=== PATIENT | female | born 1985 | race Asian ===

== ENCOUNTER 2020-07-15 04:15 | Inpatient (IN) | payer BC ==
[2020-07-15 04:48] VITALS: BMI 32.4
[2020-07-15] MEDS ORDERED: Butorphanol Tartrate 1 MG/ML VIAL SLOW IVP PRN (06:54)
[2020-07-15] MEDS ORDERED: Methylergonovine 0.2 MG/ML VIAL IM PRN (06:54)
[2020-07-15] MEDS ORDERED: HYDROcodone/Acetaminophen 5/325 mg Tablet PO PRN ×3 (06:54→14:39)
[2020-07-15] MEDS ORDERED: Misoprostol 200 MCG TAB PR PRN (06:54)
[2020-07-15] MEDS ORDERED: Ondansetron PF 4 MG/2 ML Vial IVP PRN ×3 (06:54→14:39)
[2020-07-15] MEDS ORDERED: hydrALAZINE 20 MG/ML VIAL SLOW IVP PRN ×2 (06:54→14:39)
[2020-07-15] MEDS ORDERED: Lidocaine 1% (PF) 30 ML VIAL SC PRN (06:54)
[2020-07-15] MEDS ORDERED: Ibuprofen 800 MG TAB PO PRN (06:54)
[2020-07-15] MEDS: Lactated Ringer's 1,000 ML IV SCH ×2 (07:30→10:30)
[2020-07-15 08:13] LABS: Hemoglobin 11.8 g/dL (12.0-16.0); Mean Corpuscular HGB CONC 33.8 g/dL (32.0-36.0); Mean Corpuscular Hemoglobin 21.7 pg (27.0-31.0); Mean Corpuscular Volume 64.3 fL (78.0-98.0); Mean Platelet Volume 10.2 fL (7.4-10.4); Platelet Count 205 thou/uL (130-400); RBC Distribution Width 14.1 % (11.5-14.5); Red Blood Cell (RBC) Count 5.46 mill/uL (4.20-5.40); White Blood Cell (WBC) Count 9.5 thou/uL (4.8-10.8)
[2020-07-15 08:55] LABS: HBSAg Index 0.14 S/CO (0-0.99); Hep B Surf Ag Non-Reactive S/CO (NonReactive); Syphilis Antibody Nonreactive (Nonreactive); Syphilis Antibody Index 0.02 S/CO (<1.00 Non-Reactive)
[2020-07-15] MEDS ORDERED: Fentanyl 4 mcg/Bup 0.1% Cadd 100 ML ONE (10:01)
[2020-07-15] MEDS ORDERED: ePHEDrine 50 MG/ML VIAL SLOW IVP PRN (10:32)
[2020-07-15] MEDS ORDERED: Naloxone HCl 0.4 mg/ml Vial IVP PRN ×2 (10:32)
[2020-07-15] MEDS ORDERED: Acetaminophen 325 MG TAB PO PRN ×2 (10:32→14:41)
[2020-07-15] MEDS ORDERED: Lactated Ringer's 500 ML IV PRN (10:32)
[2020-07-15] MEDS ORDERED: Promethazine HCl 25 MG/ML VIAL IM PRN (10:32)
[2020-07-15] MEDS ORDERED: diphenhydrAMINE 50 MG/ML VIAL IVP PRN (10:32)
[2020-07-15] MEDS ORDERED: Fentanyl 4 mcg/Bupivacaine 0.1% Cassette 100 ML EPIDURAL SCH (10:45)
[2020-07-15] MEDS ORDERED: Communication Order-Pharmacy FS SCH (10:45)
[2020-07-15] MEDS: NS w/ Oxytocin 30 units 500 ML IV PRN ×2 (11:05→15:15)
[2020-07-15] MEDS ORDERED: Bupivacaine HCl 0.25%/Epi 0.0005/PF 10 ML VIAL FS ONE (11:35)
[2020-07-15] MEDS ORDERED: Bupivacaine HCl 0.5%/Epinephrine 1:200,000/PF 30 ml Vial ONE (11:35)
[2020-07-15 13:05] LABS: SARS-CoV-2 MS2 Positive; SARS-CoV-2 N Gene Negative; SARS-CoV-2 S Gene Negative; SARS-CoV-2 by NAA Not Detected (NotDetected); SARS-CoV-2 orf1ab Negative
[2020-07-15] MEDS ORDERED: Milk Of Magnesia 30 ML UDCUP PO PRN (14:39)
[2020-07-15] MEDS ORDERED: diphenhydrAMINE 25 MG CAP PO PRN (14:39)
[2020-07-15] MEDS ORDERED: Preparation H Ointment 28 GM TUBE PR PRN (14:39)
[2020-07-15] MEDS ORDERED: Zolpidem Tartrate 5 MG TAB PO PRN (14:39)
[2020-07-15] MEDS ORDERED: Adacel (T-DAP) 0.5 ML SYRINGE IM ONE (14:39)
[2020-07-15] MEDS ORDERED: Benzocaine-Menthol 82.5 ML CAN TOP PRN (14:39)
[2020-07-15] MEDS ORDERED: Lanolin Ointment 7 GM TUBE TOP PRN (14:39)
[2020-07-15] MEDS ORDERED: Bisacodyl 10 MG SUPP PR PRN (14:39)
[2020-07-15] MEDS ORDERED: Misoprostol 200 MCG TAB VAG PRN (14:39)
[2020-07-15] MEDS ORDERED: NS / Oxytocin 40 units/1000ml 1,000 ML IV SCH (14:45)
[2020-07-15] MEDS: Ferrous Sulfate 325 MG TAB PO SCH (18:17)
[2020-07-15] MEDS: Ibuprofen 800 MG TAB PO SCH (18:50)
[2020-07-15] MEDS: Docusate Calcium (SURFAK) 240 MG CAP PO SCH (21:01)
[2020-07-16] MEDS: Ibuprofen 800 MG TAB PO SCH ×3 (05:20→21:45)
[2020-07-16] MEDS: Ferrous Sulfate 325 MG TAB PO SCH ×2 (08:30→16:25)
[2020-07-16] MEDS: Prenatal Vitamin 1 TAB PO SCH (08:42)
[2020-07-16] MEDS: Docusate Calcium (SURFAK) 240 MG CAP PO SCH ×2 (08:42→21:45)
[2020-07-16 09:01] LABS: Hemoglobin 10.3 g/dL (12.0-16.0); Mean Corpuscular HGB CONC 32.2 g/dL (32.0-36.0); Mean Corpuscular Hemoglobin 20.7 pg (27.0-31.0); Mean Corpuscular Volume 64.4 fL (78.0-98.0); Mean Platelet Volume 12.3 fL (7.4-10.4); Platelet Count 176 thou/uL (130-400); Red Blood Cell (RBC) Count 4.95 mill/uL (4.20-5.40)
[2020-07-17] MEDS: Ibuprofen 800 MG TAB PO SCH ×2 (05:22→13:28)
[2020-07-17] MEDS: Ferrous Sulfate 325 MG TAB PO SCH (08:32)
[2020-07-17] MEDS: Docusate Calcium (SURFAK) 240 MG CAP PO SCH (08:53)
[2020-07-17] MEDS: Prenatal Vitamin 1 TAB PO SCH (08:53)
[2020-07-17 09:01] VITALS: BP 113/78; TEMP 98.3
== END 2020-07-17 13:50 | disposition home or self-care (01) | DRG 807 ==
LOC: L&D/OP 04:15 → L&D 06:54 → 3SW 17:21
PROVIDERS: ADMIT Obstetrics & Gynecology; ATTEND Obstetrics & Gynecology
PROC: 10E0XZZ Delivery of Products of Conception, External Approach (ICD-10-PCS; principal; 2020-07-15)
PROC: 0KQM0ZZ Repair Perineum Muscle, Open Approach (ICD-10-PCS; 2020-07-15)
PROC: 10907ZC Drainage of Amniotic Fluid, Therapeutic from Products of Conception, Via Natural or Artificial Opening (ICD-10-PCS; 2020-07-15)
DX: O70.1 Second degree perineal laceration during delivery (principal); Z37.0 Single live birth; Z3A.39 39 weeks gestation of pregnancy; Z20.822 Contact with and (suspected) exposure to COVID-19
CPT/HCPCS: 36415; 51702; 85027; 86780; 86850; 86900; 86901; 87340; 87635; 99285; J2590; U0003